=== PATIENT | female | born 1955 | race Caucasian/White ===

== ENCOUNTER 2020-12-06 08:09 | Outpatient (CLI) | payer OTHER | END 2020-12-06 08:18 | disposition home or self-care (01) | LOC: NUCLEAR 08:09 | PROVIDERS: ATTEND Urology | DX: R07.89 Other chest pain (principal) | CPT/HCPCS: 78452; 93017; A9500; J0153 ==

== ENCOUNTER 2020-12-06 12:12 | Outpatient (CLI) | payer OTHER | END 2020-12-06 12:14 | disposition home or self-care (01) | LOC: RAD 12:12 | PROVIDERS: ATTEND Urology | DX: I10 Essential (primary) hypertension (principal); N28.89 Other specified disorders of kidney and ureter ==

== ENCOUNTER 2020-12-09 12:59 | Outpatient (CLI) | payer OTHER | END 2020-12-09 13:02 | disposition home or self-care (01) | LOC: NUCLEAR 12:59 | PROVIDERS: ATTEND Urology | DX: N28.89 Other specified disorders of kidney and ureter (principal) | CPT/HCPCS: 78707; A4641; J1940 ==

== ENCOUNTER 2021-04-24 07:56 | Outpatient (CLI) | payer OTHER | END 2021-04-24 08:12 | disposition home or self-care (01) | LOC: LAB 07:56 | PROVIDERS: ATTEND Radiology Diagnostic Radiology | DX: C64.1 Malignant neoplasm of right kidney, except renal pelvis (principal) ==

== ENCOUNTER 2021-04-24 08:56 | Outpatient (CLI) | payer OTHER | END 2021-04-24 08:57 | disposition home or self-care (01) | LOC: TOM 08:56 | PROVIDERS: ATTEND Urology | DX: C64.1 Malignant neoplasm of right kidney, except renal pelvis (principal) ==